=== PATIENT | male | born 1990 | race American Indian/Alaskan Native ===

== ENCOUNTER 2023-03-28 20:03 | Emergency (ER) | payer OTHER, MEDICAID, SELFPAY ==
[2023-03-28 20:09] VITALS: BP 132/87; PULSE 74; RESP 18; TEMP 36.6; O2SAT 96; BMI 43.0
--- NOTE | 2023-03-28 20:17 | DI.RAD.S_ITS ---
PROCEDURE: XR CHEST 1V INDICATIONS: chest pain TECHNIQUE: One view of the chest was acquired. COMPARISON: None. FINDINGS: Surgical changes and devices: None. Lungs and pleura: Lungs are clear. No pleural effusions or pneumothorax. Mediastinum: Mediastinal contours appear normal. Heart size is normal. Bones and chest wall: No suspicious bony lesions. Overlying soft tissues appear unremarkable. IMPRESSION: No acute cardiopulmonary abnormality. Dictated by: José Ellsworth M.D. on 03/28/2023 at 21:49 Approved by: José Ellsworth M.D. on 03/28/2023 at 21:51
[2023-03-28 21:01] LABS: Add Manual Diff / Slide Review NO; Basophils Absolute Auto 100 /uL (0-100); Basophils Percent Auto 1.1 % (0-2); Eosinophils Absolute Auto 200 /uL (0-450); Eosinophils Percent Auto 1.8 % (2-4); Hematocrit 42.4 % (41-53); Lymphocytes Absolute Auto 4000 /uL (1100-4500); Lymphocytes Percent Auto 37.3 % (25-40); Mean Corpuscular HGB Conc 35.3 % (30-36); Mean Corpuscular Hemoglobin 31.1 PG (26-34); Monocytes Absolute Auto 1000 /uL (0-900); Monocytes Percent Auto 9.2 % (3-14); Neutrophils Absolute Auto 5400 /uL (1500-7000); Neutrophils Percent Auto 50.6 % (50-75); Platelet Count 302 X10^3/uL (150-400); Red Blood Cell Count 4.82 X10^6/uL (4.5-5.9); Red Cell Distribution Width 12.3 % (11.6-14.8); White Blood Cell Count 10.7 X10^3/uL (4.5-11.0)
[2023-03-28 21:12] LABS: Alanine Aminotransferase 28 IU/L (<50); Albumin 4.1 g/dL (3.5-5.0); Albumin Globulin Ratio 1.2 (1.0-2.8); Alkaline Phosphatase 69 U/L (38-126); Aspartate Aminotransferase 26 IU/L (17-59); BUN Creatinine Ratio 20.3 (6-22); Bilirubin Total 0.3 mg/dL (0.2-1.3); Blood Urea Nitrogen 13 mg/dL (9-20); Calcium 9.1 mg/dL (8.4-10.2); Carbon Dioxide 23 mmol/L (22-32); Chloride 105 mmol/L (98-107); Creatine Kinase 94 U/L (55-170); Estimated Glomerular Filt Rate > 60 mL/min (>60); Globulin 3.4 g/dL (1.7-4.1); Glucose 101 mg/dL (70-100); HEMOLYSIS < 15 (0-50); Lipase 115 U/L (23-300); Potassium 3.9 mmol/L (3.4-5.1); Sodium 139 mmol/L (137-145); Total Protein 7.5 g/dL (6.3-8.2)
[2023-03-28 21:23] LABS: Troponin I < 0.012 ng/mL (0.01-0.034)
[2023-03-28 21:27] LABS: INR 1.1 (0.9-1.3); Prothrombin Time 12.3 SECONDS (10.1-12.7)
[2023-03-28 21:29] LABS: PTT Partial Thromboplastin Tim 31 SECONDS (26-36)
[2023-03-28 22:18] VITALS: BP 129/80; PULSE 74; RESP 17; O2SAT 98
[2023-03-28 23:13] VITALS: BP 137/81; PULSE 68; RESP 20; TEMP 36.6; O2SAT 97
--- NOTE | 2023-03-28 23:30 | ED.CHESTPAIN ---
HPI - Chest Pain General Chief Complaint: Chest Pain Stated Complaint: SOB, Fatigue, Nausea, Dizzy Time Seen by Provider: 03/28/23 23:30 Source: patient Mode of arrival: Ambulatory Limitations: language barrier History of Present Illness HPI narrative: 33-year-old gentleman with no significant medical history does not currently have a primary care physician comes in complaining about episodes that started within the last 24 hours. First noted yesterday morning with a rolling wave of pain that he describes as starting in the left axillary line and moving forward across the upper abdomen toward the epigastrium associated with nausea and dizziness and then resolves. He does not describe overt chest pain. He had another episode last night that left him significantly fatigued. He does not describe fevers. He did have an episode of diarrhea. Today he is had increased dizziness and overall nausea with more episodes of this rolling pain across the left upper abdomen. 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 Once he put his son down he felt that the arm pain was likely related to tension in his biceps. He is not complaining of dyspnea, orthopnea or diaphoresis. Related Data Allergies Allergy/AdvReac Type Severity Reaction Status Date / Time Fish Containing Products Allergy Mild Eczema Verified 07/11/20 17:00 flair up lactose Allergy Mild GI Upset Verified 07/11/20 17:00 hay Allergy Mild itching, Uncoded 07/11/20 17:01 hives Review of Systems Review of Systems Narrative: Pertinent positive and negative findings as per HPI Patient History Medical History Family history of diabetes mellitus Morbid obesity Hypertension Social History Smoking Status: Never smoker Smoking Status: Never smoker Substance Use Type: does not use Exam Initial Vital Signs Initial Vital Signs: Vital Signs Temperature 98 F 03/28/23 20:09 Pulse Rate 74 03/28/23 20:09 Respiratory Rate 18 03/28/23 20:09 Blood Pressure 132/87 03/28/23 20:09 Pulse Oximetry 96 03/28/23 20:09 Oxygen Delivery Method Room Air 03/28/23 20:09 General: Slightly pale but in no acute distress. Able to give a complete and coherent history. Well-nourished well-developed HEENT: Moist mucous membranes, normal sclera with reactive pupils, Neck: No JVD, supple Respiratory: Lungs are clear to auscultation, no wheezing no rales no rhonchi. Full and symmetrical air movement Cardiac: Regular rate and rhythm no murmurs no bruits Abdomen: Soft, nontender, good bowel tones, no flank pain Skin: Warm and dry, no rashes Neurologic: Grossly neurologically intact with no obvious asymmetries or abnormalities Extremities: No trauma, well perfused Psych: Cooperative, appropriate insight and affect Course Orders Ordered: ED Orders 03/28/23 20:17 XR chest 1V Stat EKG-12 Lead Stat 03/28/23 20:51 Complete Blood Count AUTO DIFF Stat Comprehensive Metabolic Panel Stat Lipase Stat Magnesium Stat Troponin & CK Cardiac Panel Stat 03/28/23 21:07 PTT Partial Thromboplastin Jay Stat Prothrombin Time INR Stat Discontinued Medications Aspirin (Aspirin 81 Mg Chew Tab) 324 mg PO NOW ONE Stop: 03/28/23 20:18 Vital Signs Vital signs: Vital Signs - 8 hr 03/28/23 20:09 03/28/23 22:18 03/28/23 23:13 Temperature 98 F 97.8 F Pulse Rate 74 74 68 Respiratory Rate 18 17 20 Blood Pressure 132/87 129/80 137/81 Pulse Oximetry 96 98 97 Oxygen Delivery Method Room Air Room Air Room Air MDM - Chest Pain Lab Data 03/28/23 20:51 03/28/23 20:51 Labs: Lab Results 03/28/23 03/28/23 Range/Units 20:51 21:07 WBC 10.7 (4.5-11.0) X10^3/uL RBC 4.82 (4.5-5.9) X10^6/uL Hgb 15.0 (13.5-17.5) g/dL Hct 42.4 (41-53) % MCV 88.0 (80-100) fL MCH 31.1 (26-34) PG MCHC 35.3 (30-36) % RDW 12.3 (11.6-14.8) % Plt Count 302 (150-400) X10^3/uL Neut % (Auto) 50.6 (50-75) % Lymph % (Auto) 37.3 (25-40) % [place] % (Auto) 9.2 (3-14) % Eos % (Auto) 1.8 L (2-4) % Baso % (Auto) 1.1 (0-2) % Neut # (Auto) 5400 (5297-8659) /uL Lymph # (Auto) 4000 (2108-3837) /uL [place] # (Auto) 1000 H (0-900) /uL Eos # (Auto) 200 (0-450) /uL Baso # (Auto) 100 (0-100) /uL PT 12.3 (10.1-12.7) SECONDS INR 1.1 (0.9-1.3) APTT 31 (26-36) SECONDS Sodium 139 (137-145) mmol/L Potassium 3.9 (3.4-5.1) mmol/L Chloride 105 (98-107) mmol/L Carbon Dioxide 23 (22-32) mmol/L BUN 13 (9-20) mg/dL Creatinine 0.64 L (0.66-1.25) mg/dL Estimated GFR > 60 (>60) mL/min BUN/Creatinine Ratio 20.3 (6-22) Glucose 101 H (70-100) mg/dL Calcium 9.1 (8.4-10.2) mg/dL Magnesium 2.0 (1.6-2.3) mg/dL Total Bilirubin 0.3 (0.2-1.3) mg/dL AST 26 (17-59) IU/L ALT 28 (<50) IU/L Alkaline Phosphatase 69 (38-126) U/L Total Creatine Kinase 94 (55-170) U/L Troponin I < 0.012 (0.01-0.034) ng/mL Total Protein 7.5 (6.3-8.2) g/dL Albumin 4.1 (3.5-5.0) g/dL Globulin 3.4 (1.7-4.1) g/dL Albumin/Globulin Ratio 1.2 (1.0-2.8) Lipase 115 (23-300) U/L MDM Narrative Medical decision making narrative: CC: Almost 48 hours of upper abdominal pain, nausea dizziness concerns that this may be cardiac related Data collected from: patient, Social determinants of health that may influence the patients condition: No current primary care physician Differential considered: Viral syndrome, constipation, pancreatitis, acute coronary syndrome Exam documented above, pertinent findings include: Patient is slightly pale but not acutely ill. He has some mildly reproducible pain in the left upper abdomen that he describes as ?remnants?. He is some reproducible pain with palpation in the left biceps. Heart and lungs are benign Lab Test results independently reviewed as above. Pertinent findings: CBC is entirely unremarkable Chemistries are completely reassuring Troponin is undetectable Lipase is within normal limits Independently reviewed EKG sinus rhythm at a rate of 68. Normal intervals, normal axis. No acute ischemic changes Imaging studies independently reviewed: Chest x-ray shows no acute abnormalities Discussion: 33-year-old gentleman with 48 hours of intermittent episodes nausea dizziness a single episode of diarrhea and brief episodes of waves of chest pain in the left upper abdomen. Cardiac workup is entirely benign. Labs are reassuring. There is no evidence of sepsis, acute pancreatitis, severe constipation, surgical abdomen, acute coronary syndrome or alternate explanation that would require advanced imaging or further evaluation. Findings reviewed with patient and his . Questions are answered I did offer to send him home with Jason but he felt at this point the nausea was tolerable. I suspect that this is likely a viral syndrome which I shared with him. If he is not improving he does need re-evaluation. I also recommended trying to establish care with a primary care physician. He is safe for discharge Discharge Plan Departure Patient Disposition: Home Clinical Impression: Dizziness, Intermittent upper abdominal pain, Nausea Instructions: DI for Nausea -- Adult Activity Restrictions/Additional Instructions: Thank you for coming in today With the waves of the upper abdominal pain, intermittent nausea and dizziness I suspect that you have a mild virus. Your workup today was very reassuring. I did not see any evidence for severe bacterial infection, heart attack or heart attack like syndrome, acute pneumonia, pancreatitis or alternate explanation that would require further workup or hospitalization today. I would recommend giving it a day or to see if you improve. If symptoms worsen and point to an alternative diagnosis it would be very appropriate to return to the emergency department. I encourage you to establish care with a primary care physician Referrals: Demario Buckner DO [Primary Care Provider] - Stand Alone Forms: Patient Portal/API, Work Release Note
== END 2023-03-28 23:56 | disposition home or self-care (01) ==
PROVIDERS: Emergency Provider Emergency Medicine; PCP Family Medicine
DX: R10.10 Upper abdominal pain, unspecified (principal); R11.0 Nausea; R42 Dizziness and giddiness
CPT/HCPCS: 36415; 71045; 80053; 82550; 83690; 83735; 84484; 85025; 85610; 85730; 93005; 93010; 99284